=== PATIENT | female | born 1985 | race American Indian/Alaskan Native ===

== ENCOUNTER 2019-06-05 09:56 | Outpatient (CLI) | payer OTHER, MEDICAID ==
[2019-06-05 10:27] VITALS: BP 114/67
[2019-06-05 10:58] LABS: Bilirubin,Urine NEG (Negative); Blood,Urine NEG (Negative); Color,Urine Yellow (Yellow); Protein,Urine <15 mg/dL mg/dL (Negative); RBC,Urine < 1.0 /HPF (0.0-6.0); Urobilinogen,Urine < 2.0 mg/dL (<2.0)
== END 2019-06-05 11:16 | disposition home or self-care (01) ==
LOC: TRG 09:56
PROVIDERS: ATTEND Obstetrics & Gynecology
DX: O46.8X3 Other antepartum hemorrhage, third trimester (principal); Z3A.33 33 weeks gestation of pregnancy
CPT/HCPCS: 59025; 81001

== ENCOUNTER 2019-08-29 06:06 | Outpatient (CLI) | payer OTHER, MEDICAID ==
[2019-08-29 07:25] LABS: Blood Urea Nitrogen 17 mg/dL (7-17)
--- NOTE | 2019-08-29 08:52 | Cat Scan Report ---
CT abdomen pelvis w con INDICATION: Left lower quadrant pain for 3 months. TECHNIQUE: All CT scans at this location are performed using the following dose modulation technique: Automated exposure control. Helical slices were obtained through the abdomen and pelvis following the administr ation 100 cc of Omnipaque 350 COMPARISON: None available. FINDINGS: Abdomen: Lung bases are clear. Liver, spleen, pancreas, adrenal glands, and kidneys show no acute abn ormality. The aorta is normal in diameter. There is no inflammation, obstruction, or free air. There is a moderate to large amount stool noted in the colon Pelvis: There is no obstruction, inflammation, or free air. There are no abnormal fluid collections t he appendix is unremarkable. On review of bone windows, no acute osseous abnormalities are seen. IMPRESSION: 1. There is a moderate to large amount of stool noted in the colon raising possibility of constipatio n. There is no obstruction, inflammation, or free air. Signer Name: Jamie Robert MD Signed: 08/29/2019 8:47 AM Workstation Name: [id number]
== END 2019-08-29 06:07 | disposition home or self-care (01) ==
LOC: CT 06:06
PROVIDERS: ATTEND Obstetrics & Gynecology
DX: K59.09 Other constipation (principal); R10.2 Pelvic and perineal pain
CPT/HCPCS: 36415; 74177; 82565; 84520; Q9967